=== PATIENT | male | born 1985 | race Caucasian/White ===

== ENCOUNTER 2016-11-10 13:14 | Emergency (ER) | payer MEDICAID ==
[2016-11-10] MEDS ORDERED: SULFAMETH/TRIMETH DS 800/160 MG TABLET PO STA (14:39)
[2016-11-10] MEDS ORDERED: SULFAMETH/TRIMETH DS 800/160 MG TABLET PO ONE (14:46)
== END 2016-11-10 14:50 | disposition home or self-care (01) ==
DX: L03.115 Cellulitis of right lower limb (principal); F17.200 Nicotine dependence, unspecified, uncomplicated
CPT/HCPCS: 99283; A9270

== ENCOUNTER 2017-02-27 08:43 | Emergency (ER) | payer OTHER, MEDICAID ==
[2017-02-27] MEDS ORDERED: DEXAMETHASONE 10 MG/ML VIAL PO STA (09:20)
[2017-02-27] MEDS ORDERED: DEXAMETHASONE 10 MG/ML VIAL ONE (09:22)
[2017-02-27] MEDS ORDERED: CHERRY SYRUP 10 ML UDC PO ONE (09:22)
--- NOTE | 2017-02-27 09:25 | ED Physician Documentation ---
PD HPI BACK INJURY - Stated complaint Stated Complaint: HANDS NUMB/HIP PX - History obtained from History obtained from: Patient - History of Present Illness Location: Upper, Lower Type of injury: Blunt / blow Where injury occurred: Work Timing - onset: How many days ago (4) Timing - duration: Days (4) Timing - details: Abrupt onset, Still present Quality: Pain, Spasm, Sharp Improved by: Rest Associated symptoms: Numbness, Incontinent of urine Contributing factors: Work related. No: Anticoagulated Similar symptoms before: Has not had sx before Recently seen: Not recently seen - Additional information Additional information: 31 y/o male was working on a dock and had the dock jacked up and he was under the doc. The doc was about 40 inches above ground and it tipped and fell onto his back with a glancing blow to the back striking it from the right shoulder to the left hip and the dock struck directly on the left hip as well. He got up and after swearing he was able to go about his way. Since then he has had some symptoms of numbness to the fingers and toes and some electric like shocks from his knees and some numbness to the back of the scrotum and some trouble with urination feeling he has to go and sometimes just dribbling. Review of Systems Constitutional: denies: Fever, Chills, Myalgias Eyes: denies: Decreased vision Ears: denies: Ear pain Nose: denies: Congestion Throat: denies: Sore throat Cardiac: denies: Chest pain / pressure, Palpitations Respiratory: denies: Dyspnea, Cough GI: denies: Abdominal Pain, Nausea, Vomiting, Constipation, Diarrhea : reports: Incontinent. denies: Dysuria Skin: denies: Rash Musculoskeletal: reports: Back pain. denies: Neck pain, Extremity pain Neurologic: reports: Focal weakness, Numbness. denies: Generalized weakness PD PAST MEDICAL HISTORY - Past Medical History Cardiovascular: None Respiratory: None Neuro: None Endocrine/Autoimmune: None Musculoskeletal: None - Past Surgical History Past Surgical History: No - Present Medications Home Medications: Ambulatory Orders Medication Instructions Recorded Confirmed No Known Home Medications [No 02/27/17 02/27/17 Known Home Medications] - Allergies Allergies/Adverse Reactions: Allergies Allergy/AdvReac Type Severity Reaction Status Date / Time Penicillins Allergy Hives Verified 12/18/14 11:05 - Social History Does the pt smoke?: Yes Smoking Status: Current every day smoker Does the pt drink ETOH?: Yes ETOH Use: Beer Does the pt have substance abuse?: Yes - Immunizations Immunizations are current?: No Immunizations: TDAP current <10years - POLST Patient has POLST: No PD ED PE NORMAL - Vitals Vital signs reviewed: Yes (hypertensive ) - General General: Alert and oriented X 3, No acute distress, Well developed/nourished - HEENT HEENT: Atraumatic, PERRL, EOMI, Ears normal - Neck Neck: Supple, no meningeal sign, No bony TTP - Cardiac Cardiac: RRR, No murmur - Respiratory Respiratory: No respiratory distress, Clear bilaterally - Abdomen Abdomen: Soft, Non tender - Back Back: No CVA TTP, No spinal TTP - Derm Derm: Normal color, Warm and dry, No rash - Extremities Extremities: No deformity, No edema - Neuro Neuro: Alert and oriented X 3, lpn rn hospice 2-12 intact, Normal speech, Other (There is mild decrease in the strength of dorsiflexion of the left foot. There is no perceptable differnece in upper body strength. ) - Psych Psych: Normal mood, Normal affect Results - Vitals Vitals: Vital Signs - 24 hr 02/27/17 02/27/17 02/27/17 08:48 13:16 15:45 Temperature 37.0 C Heart Rate 85 67 70 Respiratory 20 12 12 Rate Blood Pressure 135/85 H 133/80 H 141/83 H O2 Saturation 98 98 100 Oxygen O2 Source Room air - Rads (name of study) MR lumbar spine without Radiology: Prelim report reviewed (Impression: 1. Note, there only for non rib- bearing lumbar vertebral bodies. Most inferior mobile disc space is designated as L4-S1. Prior to any surgical intervention, and intraoperative lateral lumbar spine radiograph localizing instrument is recommended. This radiograph should be correlated with the sagittal MR images to avoid any confusion with respect to exact anatomic location. 2. Small disc bulge at L4-S1. Minimal canal and foraminal narrowing. 3. Small to moderate sized posterior right paracentral disc extrusion and a small diffuse disc bulge at L3-L4. Moderate to severe central canal stenosis. Moderate to severe left and severe right subarticular zone stenoses. Moderate foraminal stenoses. 4. Minimal disc bulge and minimal right foraminal narrowing at L2-3.), EMP read indepedently, See rad report PD MEDICAL DECISION MAKING - ED course Complexity details: reviewed results, re-evaluated patient, considered differential, d/w patient, d/w family ED course: 31 y/o male with a trauma to the back 4 days ago has developed numbness to the upper and lower ext (did not injure the neck) and he has numbness to the back of the scrotum and he is dribbling urine. He has not had rectal retention or incontinence. He is not in a pain crisis. I felt his symptoms of numbness to the scrotum and incontinence were concerning for cauda equina syndrome and imaging was pursued. The images were loaded to [facility] and after review of the images the patient was accepted in transfer by Dr. Reinoso. Departure - Departure Disposition: 02 Transfer Acute Care Hosp Clinical Impression: Contusion of chest Cauda equina injury without bone injury Qualifiers: Encounter type: initial encounter Qualified Code(s): S34.3XXA - Injury of cauda equina, initial encounter Discharge Date/Time: 02/27/17 17:21
--- NOTE | 2017-02-27 10:48 | MRI Preliminary Report ---
Exam: MRI Thoracic Spine W/O IMPRESSION: 1. Minimal levoconvex scoliosis. 2. Chronic appearing compression fractures at the T6, T7, T8, and T9 vertebral bodies. Schmorl's node s at multiple vertebral body endplates. No definite acute fracture or bone lesions. 3. No thoracic spinal cord lesion. No cord impingement. 4. Mild multilevel degenerative disk changes. No significant canal or foraminal stenoses. 5. Please see separate lumbar spine MRI report for additional findings. [facility] SITE ID: [id number]
--- NOTE | 2017-02-27 10:51 | MRI Report ---
EXAM: MRI THORACIC SPINE WITHOUT CONTRAST EXAM DATE: 02/27/2017 10:14 AM. CLINICAL HISTORY: Left upper and lower extremity numbness. COMPARISONS: None. TECHNIQUE: Multiplanar, multisequence T1-weighted and fluid-sensitive sequences of the thoracic spine from C7 to L1 without contrast. Other: None. FINDINGS: Spinal Cord: No signal abnormality in the visualized spinal cord. Alignment: Minimal levoconvex scoliosis. Bone Marrow: The T6 vertebral body is mildly decreased in height. Vmvb-ei-piqkagcx anterior wedge com pression deformity of the T7 vertebral body. Mild anterior wedge compression deformity of the T8 vert ebral body and T9 vertebral body. No abnormal marrow signal within these vertebral bodies. There are Schmorl's nodes at the T6, T7, T8, T9, T10 inferior endplate and at the T10, T9 superior endplates. N o definite acute fracture or bone lesions. Disk Levels/Facets: C7-T1: Tiny posterior central disk protrusion. Minimal canal narrowing. No foraminal stenoses. T1-T2: Tiny posterior left and right paracentral disk protrusions. No stenoses. T2-T3: Unremarkable. T3-T4: Unremarkable. T4-T5: Small posterior left paracentral destruction. Minimal canal narrowing. No foraminal stenoses. T5-T6: Tiny posterior central disk protrusion. No stenoses. T6-T7: Small posterior central disk protrusion. Minimal canal narrowing. No foraminal stenoses. T7-T8: Small posterior central disk protrusion. Minimal canal narrowing. No foraminal stenoses. T8-T9: Tiny posterior left paracentral disk protrusion. No stenoses. T9-T10: Mild right facet arthropathy. Mild right-sided canal stenosis and mild right foraminal stenos is. T10-T11: Small disk bulge. Mild facet arthropathy. Mild canal stenosis. Mild foraminal stenoses. T11-T12: Unremarkable. Musculature: Normal. No edema or fatty atrophy. Other: The visualized lungs, mediastinum, and abdominal cavity are unremarkable. IMPRESSION: 1. Minimal levoconvex scoliosis. 2. Chronic appearing compression fractures at the T6, T7, T8, and T9 vertebral bodies. Schmorl's node s at multiple vertebral body endplates. No definite acute fracture or bone lesions. 3. No thoracic spinal cord lesion. No cord impingement. 4. Mild multilevel degenerative disk changes. No significant canal or foraminal stenoses. 5. Please see separate lumbar spine MRI report for additional findings. [facility] Referring Provider Line: [phone] SITE ID: [id number]
--- NOTE | 2017-02-27 11:01 | MRI Preliminary Report ---
Exam: MRI Lumbar Spine W/O IMPRESSION: 1. Note, there are only 4 ryr-cyp-ndflifq lumbar vertebral bodies. The most inferior mobile disk spac e is designated as L4-S1. Prior to any surgical intervention, an intraoperative lateral lumbar spine radiograph with a localizing instrument is recommended. This radiograph should be correlated with the sagittal MR images to avoid any confusion with respect to exact anatomic location. 2. Small disk bulge at L4-S1. Minimal canal and foraminal narrowing. 3. Evfws-xn-xdqzsfyo sized posterior right paracentral disk extrusion and a small diffuse disk bulge at L3-L4. Moderate to severe central canal stenosis. Moderate to severe left and severe right subarti cular zone stenoses. Moderate foraminal stenoses. 4. Minimal disk bulge and minimal right foraminal narrowing at L2-3. Comment: The following findings are so common in adults without low back pain that while we report th eir presence, they must be interpreted with caution and in the context of the clinical situation. (Re mikki Bowenk et al, Spine 2001) Prevalence of findings in patients without low back pain: Disk degeneration (any evidence): 92% Disk desiccation/T2 signal loss: 83% Disk height loss: 56% Disk bulge: 64% Disk protrusion: 32% Annular tear/high intensity zone: 38% [facility] SITE ID: [id number]
--- NOTE | 2017-02-27 11:04 | MRI Report ---
EXAM: MRI LUMBAR SPINE WITHOUT CONTRAST EXAM DATE: 02/27/2017 10:14 AM. CLINICAL HISTORY: Upper and lower extremity numbness. COMPARISON: CT thoracic and lumbar spine from 04/05/2014. TECHNIQUE: Multiplanar, multisequence T1-weighted and fluid-sensitive sequences of the lumbar spine f rom T12 to S1 without contrast. Other: None. FINDINGS: Spinal Cord: The conus terminates at mid-T12. No signal abnormality in the visualized spinal cord. Alignment: Normal. No scoliosis or spondylolisthesis. Bone Marrow: Only for bws-twb-gxpulhm lumbar vertebral bodies are present. There are hypoplastic ribs at T12. Similar findings are seen on the previous CT thoracic and lumbar spine from 03/26/2014. No g ross fractures or bone lesions. No bone marrow edema. Disk Levels/Facets: L4-S1: Small disk bulge. Mild facet arthropathy. Minimal canal narrowing. Minimal foraminal narrowing . L3-L4: Type I degenerative endplate changes on the left side. Small to moderate-sized posterior right paracentral disk extrusion superimposed on a small diffuse disk bulge. Moderate ligamentum flavum th ickening. Moderate to severe narrowing of thecal sac and central canal. Moderate to severe left and s evere right subarticular zone stenoses. Moderate foraminal stenoses. L2-3: Minimal disk bulge. Minimal right foraminal narrowing. L1-2: Unremarkable. T12-L1: Unremarkable. Musculature: Normal. No edema or fatty atrophy. Other: The visualized pelvic cavity is unremarkable. IMPRESSION: 1. Note, there are only 4 ikk-dfm-voszpqx lumbar vertebral bodies. The most inferior mobile disk spac e is designated as L4-S1. Prior to any surgical intervention, an intraoperative lateral lumbar spine radiograph with a localizing instrument is recommended. This radiograph should be correlated with the sagittal MR images to avoid any confusion with respect to exact anatomic location. 2. Small disk bulge at L4-S1. Minimal canal and foraminal narrowing. 3. Ocwnf-il-oysfqxkq sized posterior right paracentral disk extrusion and a small diffuse disk bulge at L3-L4. Moderate to severe central canal stenosis. Moderate to severe left and severe right subarti cular zone stenoses. Moderate foraminal stenoses. 4. Minimal disk bulge and minimal right foraminal narrowing at L2-3. Comment: The following findings are so common in adults without low back pain that while we report th eir presence, they must be interpreted with caution and in the context of the clinical situation. (Re mikki Tang et al, Spine 2001) Prevalence of findings in patients without low back pain: Disk degeneration (any evidence): 92% Disk desiccation/T2 signal loss: 83% Disk height loss: 56% Disk bulge: 64% Disk protrusion: 32% Annular tear/high intensity zone: 38% [facility] Referring Provider Line: [phone] SITE ID: [id number]
[2017-02-27 15:45] VITALS: BP 141/83
== END 2017-02-27 17:21 | disposition short-term general hospital (02) ==
LOC: ED 08:43
DX: S34.3XXA Injury of cauda equina, initial encounter (principal); S20.219A Contusion of unspecified front wall of thorax, initial encounter; W20.8XXA Other cause of strike by thrown, projected or falling object, initial encounter; Y93.89 Activity, other specified; Y92.89 Other specified places as the place of occurrence of the external cause; Y99.0 Civilian activity done for income or pay; F17.200 Nicotine dependence, unspecified, uncomplicated
CPT/HCPCS: 1040M; 72146; 72148; 99283; 99285; A9270

== ENCOUNTER 2018-11-16 02:06 | Emergency (ER) | payer MEDICAID ==
[2018-11-16 02:14] VITALS: BP 132/89
== END 2018-11-16 02:19 | disposition left against medical advice (07) ==
LOC: ED 02:06
DX: T43.222A Poisoning by selective serotonin reuptake inhibitors, intentional self-harm, initial encounter (principal); Z53.21 Procedure and treatment not carried out due to patient leaving prior to being seen by health care provider

== ENCOUNTER 2019-05-26 15:31 | Emergency (ER) | payer MEDICAID ==
--- NOTE | 2019-05-26 17:23 | ED Physician Documentation ---
PD HPI NECK PAIN - Stated complaint Stated Complaint: PLATE IN NECK/GLF/SOA - Chief complaint Chief Complaint: Heent - History obtained from History obtained from: Patient - History of Present Illness Timing - onset: Yesterday Timing - details: Abrupt onset (he and awoke to a bat flying in their bedroom. He swatted at it and it rubbed his arm. It was on floor a moment and then it got up and flew out door they opened. No noted bite. They looked it up on internet and then talked with [facility] who urged them to come to ER for discussion about rabies, but would not directly "recommend" vaccine or not, but would be up to ER provider. The HD called them 3 times to see if they had gone in to ER yet.) Associated symptoms: No: Fever, Weakness, Numbness Similar symptoms before: Has not had sx before Recently seen: Not recently seen Review of Systems Constitutional: denies: Fever Nose: denies: Rhinorrhea / runny nose, Congestion Throat: denies: Sore throat Respiratory: denies: Cough Neurologic: denies: Focal weakness, Numbness, Headache PD PAST MEDICAL HISTORY - Past Medical History Cardiovascular: None Respiratory: None Endocrine/Autoimmune: None Musculoskeletal: None - Past Surgical History Past Surgical History: No - Present Medications Home Medications: Ambulatory Orders Medication Instructions Recorded Confirmed Hydrocodone/Acetaminophen [[place] 1 each PO Q6H PRN #20 tablet 05/26/19 5-325 Tablet] Methocarbamol [Robaxin] 500 mg PO Q6H PRN #30 tablet 05/26/19 Naproxen 375 mg PO BID #20 tablet 05/26/19 dexAMETHasone [Decadron] 4 mg PO DAILY #5 tablet 05/26/19 - Allergies Allergies/Adverse Reactions: Allergies Allergy/AdvReac Type Severity Reaction Status Date / Time Penicillins Allergy Hives Verified 11/16/18 02:14 - Social History Does the pt smoke?: Yes Smoking Status: Current every day smoker Does the pt drink ETOH?: Yes Does the pt have substance abuse?: Yes - Immunizations Immunizations are current?: No Immunizations: TDAP current <10years - POLST Patient has POLST: No PD ED PE NORMAL - Vitals Vital signs reviewed: Yes - General General: Alert and oriented X 3, No acute distress, Well developed/nourished - Derm Derm: Normal color, Warm and dry - Neuro Neuro: Alert and oriented X 3, No motor deficit, Normal speech Results - Vitals Vitals: Vital Signs - 24 hr 05/26/19 18:29 Temperature 36.5 C Heart Rate 74 Respiratory 18 Rate Blood Pressure 142/87 H O2 Saturation 98 Oxygen O2 Source Room air PD MEDICAL DECISION MAKING - ED course Complexity details: considered differential (discussed the issue with patient and his . Shared decision to go along with [facility] "recommendation" for vaccination. ), d/w patient Departure - Departure Disposition: 01 Home, Self Care Clinical Impression: Neck pain Neck strain Qualifiers: Encounter type: initial encounter Qualified Code(s): S16.1XXA - Strain of muscle, fascia and tendon at neck level, initial encounter Condition: Stable Record reviewed to determine appropriate education?: Yes Instructions: ED Sprain Strain Neck Prescriptions: dexAMETHasone [Decadron] 4 mg PO DAILY #5 tablet Hydrocodone/Acetaminophen [[place] 5-325 Tablet] 1 each PO Q6H PRN #20 tablet PRN Reason: Pain Methocarbamol [Robaxin] 500 mg PO Q6H PRN #30 tablet PRN Reason: Spasms Naproxen 375 mg PO BID #20 tablet Comments: Your CT scan did not show any abnormality with the hardware from the prior surgery. There is arthritic changes noted. There is no significant disc protrusion on the cord area. Use naproxen anti-inflammatory as well as Decadron anti-inflammatory as directed. Robaxin muscle relaxant as needed. Add hydrocodone if needed for pain. Recheck if not improving over the next several days to week. Discharge Date/Time: 05/26/19 19:03
[2019-05-26] MEDS ORDERED: DEXAMETHASONE 10 MG/ML VIAL PO STA (17:41)
[2019-05-26] MEDS ORDERED: ACETAMINOPHEN 325 MG TABLET PO STA (17:41)
[2019-05-26] MEDS ORDERED: METHOCARBAMOL 500 MG TABLET PO STA (17:41)
[2019-05-26] MEDS ORDERED: CHERRY SYRUP 10 ML UDC PO ONE (17:41)
--- NOTE | 2019-05-26 18:18 | CT Report ---
Reason: prior neck surgery; inc pain after recent fall Procedure Date: 05/26/2019 Accession Number: [id number] / [id number] Procedure: CT - CERVICAL SPINE WO CPT Code: FULL RESULT: EXAM: CT CERVICAL SPINE WITHOUT CONTRAST DATE: 05/26/2019 05:57 PM. HISTORY: Prior neck surgery; inc pain after recent fall. COMPARISONS: CERVICAL SPINE W/O 04/05/2014 12:59 PM. TECHNIQUE: Thin-section axial images were acquired of the cervical spine without contrast. Post-processing: Coronal and sagittal reformats. Other: None. In accordance with CT protocol optimization, one or more of the following dose reduction techniques were utilized for this exam: automated exposure control, adjustment of mA and/or KV based on patient size, or use of iterative reconstructive technique. FINDINGS: Alignment: No scoliosis or spondylolisthesis. Bones: No fracture or bone lesion. Interval ACDF at C4-C5 with intact appearing hardware in satisfactory position. Interspace Levels/Facets: C1-C2: Unremarkable. C2-C3: Unremarkable. C3-C4: Disk bulge and mild endplate spurring from posterior superior C4. Mild relative canal narrowing. No foraminal stenosis. C4-C5: ACDF. Posterior endplate spurring and partial ossification of posterior longitudinal ligament results in bony canal stenosis at level of fusion with AP canal dimension decreased to less than 9 mm at level of the inferior endplate of C4 and superior endplate of C5. Uncovertebral joint hypertrophic changes contribute to minimal bilateral foraminal narrowing. C5-C6: Disk space narrowing Mild disk bulge and endplate spurring greatest anterior. No canal stenosis. No foraminal stenosis. C6-C7: Unremarkable. C7-T1: Unremarkable. Musculature: Normal. No fatty atrophy. Other: The paravertebral and prevertebral soft tissues are unremarkable. The lung apices are clear. IMPRESSION: 1. No acute posttraumatic change seen. No fracture or spondylolisthesis. Soft tissues appear unremarkable. 2. Interval ACDF at C4-C5 with intact appearing hardware and fusion across the disk space. 3. Interval increase in spondylotic changes in cervical spine with partial ossification of posterior longitudinal ligament and associated cervical canal stenosis posterior to C4/C5 and 4. Examination otherwise as detailed above. [facility]
[2019-05-26 18:30] VITALS: BP 142/87
== END 2019-05-26 19:03 | disposition home or self-care (01) ==
LOC: ED 15:31
DX: S16.1XXA Strain of muscle, fascia and tendon at neck level, initial encounter (principal); W19.XXXA Unspecified fall, initial encounter; Y93.83 Activity, rough housing and horseplay; Z98.1 Arthrodesis status; M48.02 Spinal stenosis, cervical region; F17.200 Nicotine dependence, unspecified, uncomplicated
CPT/HCPCS: 72125; 99283; 99284; A9270